=== PATIENT | male | born 1940 | race Caucasian/White ===

== ENCOUNTER 2024-03-07 09:10 | Day surgery (SDC) | payer OTHER ==
[~2024-03-07] VITALS: Ht 175.3 cm; Wt 76.7 kg
[~2024-03-07 09:10] MED LIST: ALBU2.5V5; ALBU90OI; ATOR40TA PO; Balanced Salt Epinephrine Irrigation Solution 500 mL IR SCH; ELIQUIS5 M2 PO; FAMO20 PO; FINA5 PO; FLONASE ALLERG9.9 M2; FURO20 PO; KLOR-CON 1010 ME9 PO; LEVOTHYROXINE100 M10 PO; Lidocaine HCl/Pf 1% 5 ML VIAL XX SCH; Moxifloxacin HCL 0.5 MG/0.1 ML 0.4MLSYR LEFTEYE SCH; NITR.4SL SL; PHENYLEPHRINE\\TROPICAMIDE\\TETRACAINE OPHTHALMIC DILATING SOLN LEFTEYE PRN; Povidone-Iodine 450 DROP/30 ML Solution LEFTEYE SCH; STIOLTO RESPIMAT4 G1 INH; TAMS.4ER PO; Triamcinolone Inj Susp 40 MG / ML 1ML Vial INJ SCH; Triamcinolone Inj Susp 40 MG / ML 1ML Vial ONE; VITAMIN D350 MC3 PO
[2024-03-07] MEDS ORDERED: AMLO5 PO (10:13)
[2024-03-07] MEDS ORDERED: Midazolam HCl 1MG / ML 2ML Vial ONE (10:44)
[2024-03-07] MEDS ORDERED: Tetracaine HCl 0.5% Opth Soln 15 ml XX ONE (10:57)
[2024-03-07 11:28] VITALS: BP 159/58
== END 2024-03-07 11:53 | disposition home or self-care (01) ==
LOC: ORSCSDS 09:10
PROVIDERS: Ophthalmology
PROC: 08RK3JZ Replacement of Left Lens with Synthetic Substitute, Percutaneous Approach (ICD-10-PCS; principal; 2024-03-07 11:00)
DX: H25.812 Combined forms of age-related cataract, left eye (principal); H21.81 Floppy iris syndrome; I25.10 Atherosclerotic heart disease of native coronary artery without angina pectoris; J45.909 Unspecified asthma, uncomplicated; E03.9 Hypothyroidism, unspecified; Z79.01 Long term (current) use of anticoagulants; Z79.899 Other long term (current) drug therapy
CPT/HCPCS: J2250; J3301; V2632

== ENCOUNTER 2024-03-21 12:48 | Day surgery (SDC) | payer OTHER ==
[~2024-03-21] VITALS: Ht 172.7 cm; Wt 75.4 kg
[~2024-03-21 12:48] MED LIST changes: +AMLO5 PO; -Moxifloxacin HCL 0.5 MG/0.1 ML 0.4MLSYR LEFTEYE SCH; +Moxifloxacin HCL 0.5 MG/0.1 ML 0.4MLSYR RIGHTEYE SCH; -PHENYLEPHRINE\\TROPICAMIDE\\TETRACAINE OPHTHALMIC DILATING SOLN LEFTEYE PRN; +PHENYLEPHRINE\\TROPICAMIDE\\TETRACAINE OPHTHALMIC DILATING SOLN RIGHTEYE PRN; -Povidone-Iodine 450 DROP/30 ML Solution LEFTEYE SCH; +Povidone-Iodine 450 DROP/30 ML Solution ONE; +Povidone-Iodine 450 DROP/30 ML Solution RIGHTEYE SCH; +Tetracaine HCl/Pf 0.5% Opth Soln 4 ml ONE
[2024-03-21] MEDS ORDERED: ATOR40TA (13:30)
[2024-03-21] MEDS ORDERED: Ondansetron HCl 2 MG / ML 2ML Vial ONE (14:04)
[2024-03-21] MEDS ORDERED: Tetracaine HCl 0.5% Opth Soln 15 ml RIGHTEYE ONE (14:10)
[2024-03-21 14:42] VITALS: BP 159/75
== END 2024-03-21 15:04 | disposition home or self-care (01) ==
LOC: ORSCSDS 12:48
PROVIDERS: Ophthalmology
PROC: 08RJ3JZ Replacement of Right Lens with Synthetic Substitute, Percutaneous Approach (ICD-10-PCS; principal; 2024-03-21 14:30)
DX: H25.811 Combined forms of age-related cataract, right eye (principal); H21.81 Floppy iris syndrome; Z96.1 Presence of intraocular lens; J45.909 Unspecified asthma, uncomplicated; E03.9 Hypothyroidism, unspecified; K21.9 Gastro-esophageal reflux disease without esophagitis; I25.10 Atherosclerotic heart disease of native coronary artery without angina pectoris; Z95.1 Presence of aortocoronary bypass graft; N40.0 Benign prostatic hyperplasia without lower urinary tract symptoms; Z79.01 Long term (current) use of anticoagulants; Z79.899 Other long term (current) drug therapy; Z87.891 Personal history of nicotine dependence
CPT/HCPCS: J2405; J3301; V2632